=== PATIENT | male | born 1970 | race African-American/Black ===

== ENCOUNTER 2016-07-21 09:16 | Emergency (ER) | payer MEDICAID, OTHER ==
[~2016-07-21] VITALS: Ht 182.9 cm; Wt 81.0 kg
[~2016-07-21 09:16] MED LIST: AMOX875 PO
[2016-07-21 09:17] VITALS: BP 121/85; PULSE 72; RESP 17; TEMP 97.8; O2SAT 98
[2016-07-21] MEDS ORDERED: PROPARACAINE HCL 0.5% OPHT SOLN 15 ML BTL LEFT EYE ONE (09:30)
[2016-07-21] MEDS ORDERED: POLY10O LEFT EYE (09:44)
--- NOTE | 2016-07-21 09:45 | PD ---
HPI Chief Complaint: Eye Problems/Injury Time Seen by Provider: 09:43 Travel History International Travel<30 days: No Contact w/Intl Traveler<30days: No Traveled to known affect area: No History of Present Illness HPI 45-year-old male presents to the emergency Department with complaint of left eye redness and swelling to his eyelids since Thursday. He was at work and working on a machine and someone told him that his left eye was red and if anything was wrong. He doesn't know if maybe some fluid got into his eye from the machine. Since then he has had worsening of redness and the swelling started on Thursday morning. He also woke up with crusted drainage to his eye Thursday, Thursday, and this morning. He denies eye pain, irritation. Denies change in vision. Denies itchiness. Denies fever, chills, nausea, vomiting. Has tried using [id number] eyedrops with no relief of symptoms. No known allergies. No other modifying factors or associated signs and symptoms. [facility] Social History Alcohol Use: No Tobacco Use: No Substance Use: No Allergies-Medications (Allergen,Severity, Reaction): Coded Allergies: No Known Allergies (Unverified , 07/21/16) Reported Meds & Prescriptions Reported Meds & Active Scripts Active Polytrim Opth Drops (Polymyxin/Trimethoprim Sulfate) 10,000-0.1 Unit/Ml-% Soln 2 Drop LEFT EYE Q6HR 7 Days Review of Systems Except as stated in HPI: all other systems reviewed are Neg Physical Exam Narrative GENERAL: Well-nourished, well-developed -[place] Citizen male patient, in no acute distress; afebrile, nontoxic-appearing SKIN: Warm and dry. HEAD: Atraumatic. Normocephalic. EYES: Pupils equal and round at 3 mm with brisk reaction. PERRLA. EOMI. visual acuity 20/20 bilateral. Left lid eversion with no foreign body noted. Left eye with scleral erythema and mild lid edema. No orbital tenderness, erythema or cellulitis. Left eye without photophobia. No consensual photophobia. No scleral icterus. Crusted drainage noted to left lower eye lashes. Flores lamp exam normal. Left eye pH is 7. ENT: Mucosa pink and moist. Airway patent. NECK: Trachea midline. CARDIOVASCULAR: Regular rate. RESPIRATORY: No accessory muscle use. GASTROINTESTINAL: Rounded. NEUROLOGICAL: Awake and alert. Oriented 3. No obvious cranial nerve deficits. Motor grossly within normal limits. Normal speech. PSYCHIATRIC: Appropriate mood and affect; insight and judgment normal. Data Data Last Documented VS Vital Signs Date Time Temp Pulse Resp B/P Pulse Ox O2 Delivery O2 Flow Rate FiO2 07/21/16 09:17 97.8 72 17 121/85 98 Orders Proparacaine 0.5% Opth Soln (Alcaine 0.5 (07/21/16 09:30) [facility] Medical Decision Making Medical Screen Exam Complete: Yes Emergency Medical Condition: Yes Medical Record Reviewed: Yes Differential Diagnosis Conjunctivitis, corneal abrasion, corneal burn Narrative Course 45-year-old male physical examination consistent with left eye conjunctivitis. Flores lamp exam is normal. Visual acuity 20/20 bilaterally, left, right. Left eye pH is 7. Polytrim eyedrops prescribed for home. Instructed patient to follow up with ophthalmology as needed. Patient verbalizes understanding and agreement with treatment plan. Patient is medically cleared and stable for discharge. Discussed reasons to return to the emergency department. Instructed patient to follow up with primary care provider. Patient agrees with treatment plan. The patients vital signs are stable and the patient is stable for outpatient follow-up and treatment. Patient discharged home, stable and in no acute distress. 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 Primary Care Physician Patient Instructions: Conjunctivitis (ED), General Instructions Departure Forms: Tests/Procedures, Work Release Enter return to work date: Jul 22, 2016 Additional Instructions: Conjunctivitis is contagious Use antibiotic drops as prescribed Apply warm or cool compresses to both eyes for a few minutes several times daily to minimize irritation Avoid triggers, such as allergens, that may irritate your eyes Wash your hands frequently Do not share washcloths, towels, pillows, or any other material that has touched your eyes with any other household members Follow-up with your primary care provider Follow-up with ophthalmology as needed Return to the emergency department immediately with worsening of symptoms Med/Other Pt SpecificInfo: Prescription(s) given Scripts Polymyxin B-Trimethoprim Opth Drops (Polytrim Opth Drops)10,000-0.1 Unit/Ml-% Soln2 Drop LEFT EYE Q6HR 7 Days Ref 0 Prov:Anamaria Patel 07/21/16 Disposition: 01 DISCHARGE HOME Condition: Stable Anamaria Patel Jul 21, 2016 09:45
== END 2016-07-21 10:10 | disposition home or self-care (01) ==
LOC: NEPK 09:16
DX: H10.9 Unspecified conjunctivitis (principal)
CPT/HCPCS: 99282

== ENCOUNTER 2016-07-23 09:24 | Emergency (ER) | payer OTHER ==
[~2016-07-23 09:24] MED LIST changes: -AMOX875 PO; +POLY10O LEFT EYE
[2016-07-23 09:25] VITALS: BP 138/83; PULSE 65; RESP 14; TEMP 99; O2SAT 98
[2016-07-23] MEDS ORDERED: ERYTOIN10 EACH EYE (12:09)
--- NOTE | 2016-07-23 12:10 | PD ---
HPI Chief Complaint: Eye Problems/Injury Time Seen by Provider: 11:30 Travel History International Travel<30 days: No Contact w/Intl Traveler<30days: No Traveled to known affect area: No History of Present Illness HPI Patient is a 45-year-old male presented to them for reevaluation of conjunctivitis. Patient states his work will not clear him to come back until he gets a more specific doctor's note. He has been using polymycin eyedrops since Thursday, he reports interval improvement however he continues to have reddened eyes. He denies any visual changes, photophobia, pain, foreign body sensation, pruritus. He states that when symptoms started he didn't even realize his eye was red and it was pointed out to him by a coworker. [facility] Past Medical History Medical History: Denies Significant Hx Social History Alcohol Use: No Tobacco Use: No Substance Use: No Allergies-Medications (Allergen,Severity, Reaction): Coded Allergies: No Known Allergies (Unverified , 07/21/16) Reported Meds & Prescriptions Reported Meds & Active Scripts Active Polytrim Opth Drops (Polymyxin/Trimethoprim Sulfate) 10,000-0.1 Unit/Ml-% Soln 2 Drop LEFT EYE Q6HR 7 Days Review of Systems Except as stated in HPI: all other systems reviewed are Neg General / Constitutional: No: Fever Eyes: Positive: Redness, Tearing, No: Blurred Vision, Photophobia, Foreign Body Sensation, Pain, Blind Spots, Visual changes HENT: No: Headaches Gastrointestinal: No: Nausea, Vomiting Physical Exam Narrative GENERAL: Well-nourished, well-developed patient. SKIN: Focused skin assessment warm/dry. HEAD: Normocephalic. EYES: No scleral icterus. Moderate injection in the left eye, mild injection in right eye. Fluorescein eye exam did not reveal any abrasions, ulcerations, dendritic lesions. Extraocular movements are intact. Pupils are equal, round, reactive. NECK: Supple, trachea midline. No JVD or lymphadenopathy. CARDIOVASCULAR: Regular rate and rhythm without murmurs, gallops, or rubs. RESPIRATORY: Breath sounds equal bilaterally. No accessory muscle use. GASTROINTESTINAL: Abdomen soft, non-tender, nondistended. MUSCULOSKELETAL: No cyanosis, or edema. BACK: Nontender without obvious deformity. No CVA tenderness. Data Data Last Documented VS Vital Signs Date Time Temp Pulse Resp B/P Pulse Ox O2 Delivery O2 Flow Rate FiO2 07/23/16 09:25 99.0 65 14 138/83 98 Room Air MDM Medical Decision Making Medical Screen Exam Complete: Yes Emergency Medical Condition: Yes Interpretation(s) Vital Signs Date Time Temp Pulse Resp B/P Pulse Ox O2 Delivery O2 Flow Rate FiO2 07/23/16 09:25 99.0 65 14 138/83 98 Room Air Differential Diagnosis Iritis versus episcleritis versus conjunctivitis versus other Narrative Course Patient is a 45-year-old male returning to emergency room for reevaluation of conjunctivitis. His examination appears most consistent with viral conjunctivitis. Patient was advised that this is a self-limiting illness. He was also advised that it is highly contagious and he should maintain strict hand washing procedures. He was advised to follow-up with an area field manager or primary care provider. He was encouraged to return to emergency department any new or worsening symptoms. Patient was advised that his symptoms should begin to improve slowly over the next 3-4 days. He was advised that if there were any changes in his vision, headache, eye pain that he should return to emergency department immediately. Patient verbalized understanding of these instructions. Patient is stable for discharge. Diagnosis Primary Impression: Conjunctivitis of both eyes Qualified Code: B30.9 - Acute viral conjunctivitis of both eyes Referrals: Counselor D[employer] 2 days Patient Instructions: Conjunctivitis (ED), General Instructions Departure Forms: Tests/Procedures, Work Release Enter return to work date: Jul 24, 2016 Special Instructions: Strict handwashing precautions Avoid contact with food preparation or patient care. Additional Instructions: Maintain strict hand washing procedures Conjunctivitis is self-limiting it should begin to clear on its own in the next several days. It is contagious. May return to work, avoid contact with food preparation or patient care if applicable. Follow-up with ophthalmology Return to emergency department for any new or worsening symptoms Med/Other Pt SpecificInfo: Prescription(s) given Scripts Erythromycin Opth Oint 5 Mg/Gm Oint1 Applic EACH EYE QID #1 TUBE Ref 0 Prov:Evi Tatum 07/23/16 Disposition: 01 DISCHARGE HOME Condition: Stable Evi Tatum Jul 23, 2016 12:10
== END 2016-07-23 12:35 | disposition home or self-care (01) ==
LOC: NEPK 09:24
DX: B30.9 Viral conjunctivitis, unspecified (principal)
CPT/HCPCS: 99282